=== PATIENT | female | born 2000 | race African-American/Black ===

== ENCOUNTER 2020-10-04 10:55 | Emergency (ER) | payer MEDICAID ==
[~2020-10-04] VITALS: Ht 165.1 cm; Wt 56.7 kg
--- NOTE | 2020-10-04 11:06 | NUR ---
Dr Trent at the bedside for MSE.
[2020-10-04] MEDS ORDERED: LEVE500T9 PO (11:09)
[2020-10-04] MEDS ORDERED: levETIRAcetam 250 MG TABLET PO ONE (11:15)
[2020-10-04] MEDS ORDERED: levETIRAcetam 250 MG TABLET ONE (11:19)
--- NOTE | 2020-10-04 11:35 | NUR ---
Pt is resting in bed, no seizure activity noted so far.
[2020-10-04 11:52] LABS: CREATININE 0.9 mg/dL (0.6-1.3); POTASSIUM 4.3 mmol/L (3.5-5.1)
--- NOTE | 2020-10-04 12:05 | NUR ---
Pt remaines awake A/O x4, and wishes to be discharged.
[2020-10-04 12:10] VITALS: BP 107/68
--- NOTE | 2020-10-04 12:10 | NUR ---
Patient discharged to home in stable condition. Written and verbal after care instructions given. Patient verbalizes understanding of instructions. Stressed follow up or return to ER for worsening s/s.
== END 2020-10-04 12:10 | disposition home or self-care (01) ==
LOC: ER 10:55
DX: G40.909 Epilepsy, unspecified, not intractable, without status epilepticus (principal); Z83.3 Family history of diabetes mellitus; Z79.899 Other long term (current) drug therapy
CPT/HCPCS: 36415; A4663